=== PATIENT | male | born 1995 | race Caucasian/White ===

== ENCOUNTER 2018-04-29 14:46 | Emergency (ER) | payer BC, OTHER ==
[~2018-04-29] VITALS: Ht 167.6 cm; Wt 75.0 kg
[~2018-04-29 14:46] MED LIST: ALB0.5UD IH; DIPH-423 PO; ONDA4TAB12 PO; PRED20TA PO
[2018-04-29] MEDS ORDERED: LIDOcaine 1.5% w/epinephrine 1:200,000 5ml ampul IJ ONE (14:55)
[2018-04-29 16:17] VITALS: BP 134/84
== END 2018-04-29 16:18 | disposition home or self-care (01) ==
LOC: ER 14:47
DX: S51.812A Laceration without foreign body of left forearm, initial encounter (principal); Z79.899 Other long term (current) drug therapy; W27.8XXA Contact with other nonpowered hand tool, initial encounter; Y93.89 Activity, other specified; Y92.89 Other specified places as the place of occurrence of the external cause; Y99.8 Other external cause status
CPT/HCPCS: 12031; 99284; A6449; J3490

== ENCOUNTER 2018-05-09 12:05 | Emergency (ER) | payer OTHER ==
[~2018-05-09] VITALS: Ht 170.2 cm; Wt 66.3 kg
[2018-05-09 12:27] VITALS: BP 126/68
== END 2018-05-09 13:12 | disposition home or self-care (01) ==
LOC: ER 12:05
DX: Z48.02 Encounter for removal of sutures (principal); F12.90 Cannabis use, unspecified, uncomplicated; Z56.0 Unemployment, unspecified; Z79.899 Other long term (current) drug therapy
CPT/HCPCS: 99281